=== PATIENT | female | born 1965 | race Caucasian/White ===

== ENCOUNTER → 2017-11-01 | Outpatient (CLI) | payer OTHER ==
[~2017-11-01] MED LIST: ALBU90OI INH; ALL DAY ALLERGY10 M1 PO; AMOX500 PO; Advil200 M1 PO; Augmentin 875-1 EACH PO; BONINE25 MG; Bactrim Ds Tab1 EACH PO; CEPH500; CEPH500 PO; CIPR500 PO; CLON.5; CLON.5 PO; CODBUTACEC PO; CYCL10; CYCL10 PO; Cleocin HCl150 MG PO; Cleocin HCl300 MG PO; DIAZ5 PO; DICY20 PO; Estradiol1 MG PO; FERR325; FURO20; GABA100; GEMF600; HYDACE5; HYDACE5 PO; HYDMOR2 PO; HYDPAM50 PO; IBUP600; IBUP600 PO; IBUP800; IBUP800 PO; Keflex500 MG PO; LAMO100; LAMO100 PO; LEVSOD100; LISI10; LITH300ER; LITH450ER; MEDR10 PO; MONT10T; NAPR500; NAPR500 PO; OLAN10; OLAN5 PO; OLAN7.5 PO; OXYACE5T; OXYACE5T PO; OXYACE7.5T; PROACE50 PO; PROAIR HFA; PROM25; PROM25 PO; QUET100; QUET300; QVAR7.3 G1 IH; QVAR7.3 G1 INH; RANI150; RANI150 PO; RXCEPH500 PO; RXHYDACE PO; RXLORA1 PO; RXOXYACE PO; RXSULTRIDS PO; RXTRAM50 PO; SPIR50; SULTRIDS PO; SYMBYAX; TRAM50 PO; VENL75ER; Zofran Odt4 MG SL; [UNRECOGNIZED DRUG - REMARK]
== END | disposition home or self-care (01) ==
LOC: LAB 15:10
DX: N39.0 Urinary tract infection, site not specified (principal)
CPT/HCPCS: 87086

== ENCOUNTER 2018-08-29 07:17 | Day surgery (SDC) | payer OTHER ==
[~2018-08-29] VITALS: Ht 175.3 cm; Wt 138.5 kg
[~2018-08-29 07:17] MED LIST changes: +FURO20 PO; +GLYDO11 ML MM; +HEARTBURN RELI150 M1 PO; +MONT10T PO; +MOTION RELIEF25 MG PO; +OLANZAPINE-FLU1 EACH PO; +ONDA4 PO; +QVAR REDIHALE10.6 G1 INH
--- NOTE | 2018-08-29 07:46 | NUR ---
08/29/18 0746 Carola Colon FIRST IV START IN RIGHT HAND HURT TO BAD. WE REMOVED IT AND SITE LOOKS GOOD.
[2018-08-29] MEDS ORDERED: METF500C PO (07:48)
== END 2018-08-29 09:17 | disposition home or self-care (01) ==
LOC: ORSCSDS 07:17
PROVIDERS: Internal Medicine Gastroenterology
PROC: 0DB68ZX Excision of Stomach, Via Natural or Artificial Opening Endoscopic, Diagnostic (ICD-10-PCS; principal; 2018-08-29 08:30)
DX: K21.0 Gastro-esophageal reflux disease with esophagitis (principal); K44.9 Diaphragmatic hernia without obstruction or gangrene; G47.33 Obstructive sleep apnea (adult) (pediatric); K31.89 Other diseases of stomach and duodenum; F31.9 Bipolar disorder, unspecified; I10 Essential (primary) hypertension; J45.909 Unspecified asthma, uncomplicated; E66.01 Morbid (severe) obesity due to excess calories; Z68.42 Body mass index [BMI] 45.0-49.9, adult; Z79.899 Other long term (current) drug therapy
CPT/HCPCS: 82947; 88305; 88342; J0330; J1980; J2250; J2405; J7120

== ENCOUNTER 2018-09-12 15:57 | Emergency (ER) | payer OTHER ==
[~2018-09-12] VITALS: Ht 175.3 cm; Wt 138.3 kg
[~2018-09-12 15:57] MED LIST changes: +METF500C PO
[2018-09-12] MEDS ORDERED: Omeprazole20 M1 PO (17:56)
[2018-09-12] MEDS ORDERED: KETO10 PO (18:18)
[2018-09-12] MEDS ORDERED: CYCL10 PO (18:18)
== END 2018-09-12 19:43 | disposition home or self-care (01) ==
LOC: ER 15:57
DX: M54.5 Low back pain (principal); G89.29 Other chronic pain; F41.9 Anxiety disorder, unspecified; F31.9 Bipolar disorder, unspecified; Z88.1 Allergy status to other antibiotic agents; Z88.8 Allergy status to other drugs, medicaments and biological substances; Z79.84 Long term (current) use of oral hypoglycemic drugs; Z79.899 Other long term (current) drug therapy; Z87.440 Personal history of urinary (tract) infections; Z87.891 Personal history of nicotine dependence
CPT/HCPCS: 72100; 96372; 99283-25; J1885

== ENCOUNTER → 2018-12-30 | Outpatient (CLI) | payer OTHER ==
[~2018-12-30] MED LIST changes: +KETO10 PO; +Omeprazole20 M1 PO
[2018-12-30 10:30] LABS: Calcium, Urine 13.7 mg/dL (< 17.5); Calcium, Urine Calculation 232.9 mg/24hrs (42.0-353.0)
== END | disposition home or self-care (01) ==
LOC: LAB 09:41 → LAB SHORT 09:41 → LAB FUT 09-08 15:15
PROVIDERS: Internal Medicine Endocrinology, Diabetes & Metabolism
DX: E21.0 Primary hyperparathyroidism (principal)
CPT/HCPCS: 81050; 82340; 82570

== ENCOUNTER 2019-08-19 16:42 | Emergency (ER) | payer OTHER ==
[~2019-08-19] VITALS: Ht 175.3 cm; Wt 136.1 kg
[2019-08-19] MEDS ORDERED: Robaxin-750750 MG PO (18:59)
[2019-08-19] MEDS ORDERED: Voltaren100 GM TOP (18:59)
== END 2019-08-19 19:08 | disposition home or self-care (01) ==
LOC: ER 16:42
DX: G89.29 Other chronic pain (principal); M54.5 Low back pain; F41.9 Anxiety disorder, unspecified; F31.9 Bipolar disorder, unspecified; Z87.440 Personal history of urinary (tract) infections; Z88.1 Allergy status to other antibiotic agents; Z88.8 Allergy status to other drugs, medicaments and biological substances; Z79.899 Other long term (current) drug therapy; Z87.891 Personal history of nicotine dependence; Z85.528 Personal history of other malignant neoplasm of kidney
CPT/HCPCS: 96372; 99283-25; J1885

== ENCOUNTER → 2019-09-25 | Outpatient (CLI) | payer OTHER ==
[~2019-09-25] MED LIST changes: +Robaxin-750750 MG PO; +Voltaren100 GM TOP
[2019-09-25 14:53] LABS: Alanine Aminotransfer (ALT/SGP 31 U/L (12-78); Albumin, Blood 3.6 g/dL (3.4-5.0); Albumin/Globulin Ratio 0.8 (0.8-1.8); Alk Phos 143 U/L (40-126); Anion Gap 10 mmol/L (6-16); Aspartate Aminotrans (AST/SGOT 24 U/L (12-37); Bilirubin, Total 0.3 mg/dL (0.1-1.0); Blood Urea Nitrogen 7 mg/dL (8-24); Bun/Creatinine Ratio 8.8 (12.0-20.0); CO2, Blood 26 mmol/L (21-32); Calcium, Blood 10.3 mg/dL (8.5-10.1); Chloride, Blood 104 mmol/L (98-108); Globulin, Blood 4.4 g/dL (2.2-4.0); Glomerular Filtration Rate >60 (60-); Glucose, Blood 134 mg/dL (70-99); Potassium, Blood 4.1 mmol/L (3.5-5.5); Sodium, Blood 140 mmol/L (136-145)
== END ==
LOC: LAB SHORT 14:31 → LAB EV 14:31
PROVIDERS: Emergency Medicine
DX: M54.5 Low back pain (principal)
CPT/HCPCS: 80053

== ENCOUNTER 2020-05-14 21:53 | Emergency (ER) | payer OTHER ==
[~2020-05-14] VITALS: Ht 175.3 cm; Wt 141.5 kg
[2020-05-14] MEDS ORDERED: ATOR20 (22:05)
[2020-05-14] MEDS ORDERED: SITA50T2 PO (22:05)
[2020-05-14] MEDS ORDERED: CYCL10 PO (22:05)
[2020-05-14] MEDS ORDERED: POTA8 (22:06)
[2020-05-14] MEDS ORDERED: FUROSEMIDE20 MG PO (22:06)
[2020-05-14] MEDS ORDERED: ESTRADIOL 1MG (22:07)
== END 2020-05-14 23:19 | disposition home or self-care (01) ==
LOC: ER 21:53
DX: M25.562 Pain in left knee (principal); F41.9 Anxiety disorder, unspecified; F31.9 Bipolar disorder, unspecified; Z87.891 Personal history of nicotine dependence; Z79.84 Long term (current) use of oral hypoglycemic drugs; Z88.1 Allergy status to other antibiotic agents; Z88.8 Allergy status to other drugs, medicaments and biological substances; Z79.899 Other long term (current) drug therapy
CPT/HCPCS: 96372; 99283-25; J1885

== ENCOUNTER 2020-05-19 16:43 | Emergency (ER) | payer OTHER ==
[~2020-05-19] VITALS: Ht 175.3 cm; Wt 145.2 kg
[~2020-05-19 16:43] MED LIST changes: +ATOR20; +ESTRADIOL 1MG; +FUROSEMIDE20 MG PO; +POTA8; +SITA50T2 PO
[2020-05-19] MEDS ORDERED: ESTRADIOL1 M1 PO (16:56)
[2020-05-19] MEDS ORDERED: OLANZAPINE-FLU1 EAC8 PO (16:56)
[2020-05-19] MEDS ORDERED: CYCL10 PO (16:58)
[2020-05-19] MEDS ORDERED: ATOR40TA PO (16:59)
[2020-05-19] MEDS ORDERED: HYDR1TAB94 PO (18:34)
[2020-05-19] MEDS ORDERED: Colace250 MG PO (18:34)
== END 2020-05-19 19:18 | disposition home or self-care (01) ==
LOC: ER 16:43
DX: S83.92XA Sprain of unspecified site of left knee, initial encounter (principal); F41.9 Anxiety disorder, unspecified; F31.9 Bipolar disorder, unspecified; Z88.1 Allergy status to other antibiotic agents; Z79.84 Long term (current) use of oral hypoglycemic drugs; Z79.899 Other long term (current) drug therapy; Z88.8 Allergy status to other drugs, medicaments and biological substances; Z87.891 Personal history of nicotine dependence; X50.0XXA Overexertion from strenuous movement or load, initial encounter
CPT/HCPCS: 29505; 73564; 99283-25; A9270-GY

== ENCOUNTER → 2021-03-15 | Outpatient (CLI) | payer OTHER ==
[~2021-03-15] MED LIST changes: +ATOR40TA PO; +Colace250 MG PO; +ESTRADIOL1 M1 PO; +HYDR1TAB94 PO; +OLANZAPINE-FLU1 EAC8 PO
== END | disposition home or self-care (01) ==
LOC: LAB SHORT 11:00
DX: N30.00 Acute cystitis without hematuria (principal)
CPT/HCPCS: 87077; 87086; 87186

== ENCOUNTER 2021-04-02 19:03 | Emergency (ER) | payer OTHER ==
[~2021-04-02] VITALS: Ht 177.8 cm; Wt 133.8 kg
[2021-04-02 20:11] LABS: Source, Urine Clean Catch
[2021-04-02 20:15] LABS: Bilirubin, Urine Neg (Neg); Blood, Urine 5+ (Neg); Glucose Qualitative, Urine Neg (Neg); Ketones, Urine 1+ (Neg); Leukocyte Esterase, Urine 3+ (Neg); Nitrite, Urine Neg (Neg); Protein, Urine 4+ (Neg); Specific Gravity, Urine 1.025 (1.003-1.022); Urobilinogen, Urine 1+ (Normal)
[2021-04-02 20:17] LABS: Appearance, Urine Cloudy (Clear); Color, Urine Yellow (P-Yellow)
[2021-04-02] MEDS ORDERED: SULTRIDS PO (20:23)
[2021-04-02 20:25] LABS: Bacteria Mod /hpf; Red Blood Cells, Urine 25-50 /hpf (0-2); Squamous Epithelial Cells Few /hpf (Few); White Blood Cells, Urine TNTC /hpf (0-5)
== END 2021-04-02 20:40 | disposition home or self-care (01) ==
LOC: ER 19:03
PROVIDERS: Physician Assistant
DX: N39.0 Urinary tract infection, site not specified (principal); B96.89 Other specified bacterial agents as the cause of diseases classified elsewhere; Z88.1 Allergy status to other antibiotic agents; Z88.5 Allergy status to narcotic agent; Z79.899 Other long term (current) drug therapy; Z87.891 Personal history of nicotine dependence
CPT/HCPCS: 81001; 87086; 99283; A9270

== ENCOUNTER 2021-09-23 08:25 | Day surgery (SDC) | payer OTHER ==
[~2021-09-23] VITALS: Ht 175.3 cm; Wt 144.7 kg
--- NOTE | 2021-09-23 10:20 | NUR ---
09/23/21 1020 Leonor Chahal ORISE GEL WAS INJECTED AT TOTAL OF 7CC INTO TRANSVERSE POLYP
== END 2021-09-23 11:12 | disposition home or self-care (01) ==
LOC: ORSCSDS 08:25
PROVIDERS: Internal Medicine Gastroenterology
PROC: 0DBN8ZX Excision of Sigmoid Colon, Via Natural or Artificial Opening Endoscopic, Diagnostic (ICD-10-PCS; principal; 2021-09-23 10:00)
PROC: 0DBL8ZX Excision of Transverse Colon, Via Natural or Artificial Opening Endoscopic, Diagnostic (ICD-10-PCS; principal; 2021-09-23 10:00)
DX: Z12.11 Encounter for screening for malignant neoplasm of colon (principal); Z86.010 Personal history of colon polyps; D12.3 Benign neoplasm of transverse colon; D12.5 Benign neoplasm of sigmoid colon; K57.30 Diverticulosis of large intestine without perforation or abscess without bleeding; K64.8 Other hemorrhoids; I10 Essential (primary) hypertension; E78.5 Hyperlipidemia, unspecified; J44.9 Chronic obstructive pulmonary disease, unspecified; E11.9 Type 2 diabetes mellitus without complications; G47.33 Obstructive sleep apnea (adult) (pediatric); Z79.899 Other long term (current) drug therapy; F31.9 Bipolar disorder, unspecified; E66.01 Morbid (severe) obesity due to excess calories; Z68.42 Body mass index [BMI] 45.0-49.9, adult; Z79.84 Long term (current) use of oral hypoglycemic drugs
CPT/HCPCS: 82947; 88305; J2704; J7120

== ENCOUNTER → 2022-03-16 | Outpatient (CLI) | payer OTHER ==
[~2022-03-16] MED LIST changes: +OLANZAPINE FLU PO; -OLANZAPINE-FLU1 EAC8 PO; +VITAMIN D5000 UNIT PO
[2022-03-20 03:08] LABS: HSV-1 DNA Negative (Negative); HSV-2 DNA Negative (Negative)
== END | disposition home or self-care (01) ==
LOC: LAB SHORT 14:00 → LAB 14:00
PROVIDERS: Nurse Practitioner
DX: R21 Rash and other nonspecific skin eruption (principal)
CPT/HCPCS: 87070; 87529

== ENCOUNTER 2022-04-03 11:57 | Day surgery (SDC) | payer OTHER ==
[~2022-04-03] VITALS: Ht 175.3 cm; Wt 140.2 kg
== END 2022-04-03 15:05 | disposition home or self-care (01) ==
LOC: ORSCSDS 11:57
PROVIDERS: Internal Medicine Gastroenterology
PROC: 0DBK8ZX Excision of Ascending Colon, Via Natural or Artificial Opening Endoscopic, Diagnostic (ICD-10-PCS; principal; 2022-04-03 13:15)
PROC: 0DBL8ZX Excision of Transverse Colon, Via Natural or Artificial Opening Endoscopic, Diagnostic (ICD-10-PCS; principal; 2022-04-03 13:15)
PROC: 0DBN8ZX Excision of Sigmoid Colon, Via Natural or Artificial Opening Endoscopic, Diagnostic (ICD-10-PCS; principal; 2022-04-03 13:15)
DX: Z86.010 Personal history of colon polyps (principal); D12.5 Benign neoplasm of sigmoid colon; D12.2 Benign neoplasm of ascending colon; D12.3 Benign neoplasm of transverse colon; K57.30 Diverticulosis of large intestine without perforation or abscess without bleeding; K64.8 Other hemorrhoids; I10 Essential (primary) hypertension; G47.33 Obstructive sleep apnea (adult) (pediatric); J45.909 Unspecified asthma, uncomplicated; F31.9 Bipolar disorder, unspecified; Z79.899 Other long term (current) drug therapy; Z79.84 Long term (current) use of oral hypoglycemic drugs; Z87.891 Personal history of nicotine dependence
CPT/HCPCS: 82947; 88305; J2704; J7120

== ENCOUNTER → 2022-06-02 | Outpatient (CLI) | payer OTHER | END | disposition home or self-care (01) | LOC: LAB 12:00 → LAB SHORT 12:00 | DX: R35.0 Frequency of micturition (principal) | CPT/HCPCS: 87077; 87086; 87186 ==

== ENCOUNTER 2022-08-20 06:12 | Day surgery (SDC) | payer OTHER ==
[~2022-08-20] VITALS: Ht 175.3 cm; Wt 142.3 kg
[2022-08-20] MEDS ORDERED: ESTRADIOL1 MG PO (06:29)
[2022-08-20] MEDS ORDERED: ALBU90OI INH (06:41)
--- NOTE | 2022-08-20 06:43 | NUR ---
08/20/22 0643 Veronique Cruz IN AT 0611 JESSE IN AT 0676
== END 2022-08-20 08:10 | disposition home or self-care (01) ==
LOC: ORSCSDS 06:12
PROVIDERS: Ophthalmology
PROC: 08RJ3JZ Replacement of Right Lens with Synthetic Substitute, Percutaneous Approach (ICD-10-PCS; principal; 2022-08-20 07:30)
DX: H25.12 Age-related nuclear cataract, left eye (principal); Z87.891 Personal history of nicotine dependence; I10 Essential (primary) hypertension; G47.33 Obstructive sleep apnea (adult) (pediatric); J45.909 Unspecified asthma, uncomplicated; E11.9 Type 2 diabetes mellitus without complications; E66.01 Morbid (severe) obesity due to excess calories; Z68.42 Body mass index [BMI] 45.0-49.9, adult; F31.9 Bipolar disorder, unspecified; Z79.84 Long term (current) use of oral hypoglycemic drugs; Z79.899 Other long term (current) drug therapy
CPT/HCPCS: 82947; J2001; J2250; J3010; J3301; J7040; V2632

== ENCOUNTER 2022-08-25 13:07 | Day surgery (SDC) | payer OTHER ==
[~2022-08-25] VITALS: Ht 175.3 cm; Wt 141.9 kg
[~2022-08-25 13:07] MED LIST changes: +ESTRADIOL1 MG PO
== END 2022-08-25 15:18 | disposition home or self-care (01) ==
LOC: ORSCSDS 13:07
PROVIDERS: Ophthalmology
PROC: 08RJ3JZ Replacement of Right Lens with Synthetic Substitute, Percutaneous Approach (ICD-10-PCS; principal; 2022-08-25 14:30)
DX: H25.11 Age-related nuclear cataract, right eye (principal); Z96.1 Presence of intraocular lens; I10 Essential (primary) hypertension; F31.9 Bipolar disorder, unspecified; E11.9 Type 2 diabetes mellitus without complications; E21.3 Hyperparathyroidism, unspecified; Z79.84 Long term (current) use of oral hypoglycemic drugs; Z79.899 Other long term (current) drug therapy; Z87.891 Personal history of nicotine dependence; E66.01 Morbid (severe) obesity due to excess calories; Z68.42 Body mass index [BMI] 45.0-49.9, adult
CPT/HCPCS: 82947; J2001; J2250; J3010; J3301; J7040; V2632

== ENCOUNTER → 2022-11-16 | Outpatient (CLI) | payer OTHER ==
[2022-11-16 15:21] LABS: Creatinine Urine 74.1 mg/dL (27.00-270.00); Microalbumin, Urine Quant. 12.7 mg/L (0.000-20.000); Protein, Urine Quantitative 9.4 mg/dL (0.0-11.9)
== END | disposition home or self-care (01) ==
LOC: LAB 09:00 → LAB SHORT 09:00
PROVIDERS: Internal Medicine Nephrology
DX: N18.30 Chronic kidney disease, stage 3 unspecified (principal); D63.1 Anemia in chronic kidney disease; N25.81 Secondary hyperparathyroidism of renal origin; E55.9 Vitamin D deficiency, unspecified; E23.1 Drug-induced hypopituitarism; R76.9 Abnormal immunological finding in serum, unspecified; R94.5 Abnormal results of liver function studies; R94.6 Abnormal results of thyroid function studies
CPT/HCPCS: 81050; 82043; 82570; 84156

== ENCOUNTER → 2022-11-27 | Outpatient (CLI) | payer OTHER ==
[2022-11-27 11:57] LABS: Albumin, Blood 3.7 g/dL (3.4-5.0); Anion Gap 4 mmol/L (6-16); Blood Urea Nitrogen 10 mg/dL (8-24); Bun/Creatinine Ratio 15.2 (12.0-20.0); CO2, Blood 26 mmol/L (21-32); Calcium, Blood 10.7 mg/dL (8.5-10.1); Chloride, Blood 107 mmol/L (98-108); Creatinine, Blood 0.66 mg/dL (0.40-1.00); Glomerular Filtration Rate 102 (60-); Glucose, Blood 213 mg/dL (70-99); Phosphorus, Blood 2.8 mg/dL (2.5-4.9); Potassium, Blood 4.1 mmol/L (3.5-5.5); Sodium, Blood 137 mmol/L (136-145)
== END | disposition home or self-care (01) ==
LOC: LAB 10:10 → LAB SHORT 10:10
PROVIDERS: Internal Medicine Endocrinology, Diabetes & Metabolism
DX: E21.0 Primary hyperparathyroidism (principal); E55.9 Vitamin D deficiency, unspecified; E11.65 Type 2 diabetes mellitus with hyperglycemia
CPT/HCPCS: 36415; 80069; 82306; 83036; 83970

== ENCOUNTER → 2023-06-14 | Outpatient (CLI) | payer OTHER ==
[2023-06-14 15:03] LABS: BASOPHILS ABSOLUTE AUTO 0.06 K/mm3 (0.00-0.23); BASOPHILS PERCENT AUTO 1 % (0-2); EOSINOPHILS ABSOLUTE AUTO 0.25 K/mm3 (0.00-0.68); EOSINOPHILS PERCENT AUTO 2 % (0-6); Hematocrit 41.6 % (33.0-51.0); Hemoglobin 13.3 g/dL (11.5-16.0); IMMATURE GRAN ABSOLUTE AUTO 0.09 K/mm3 (0.00-0.10); IMMATURE GRAN PERCENT AUTO 1 % (0-1); LYMPHOCYTES ABSOLUTE AUTO 3.16 K/mm3 (0.84-5.20); LYMPHOCYTES PERCENT AUTO 27 % (21-46); MONOCYTES ABSOLUTE AUTO 0.81 K/mm3 (0.16-1.47); MONOCYTES PERCENT AUTO 7 % (4-13); Mean Corpuscular HGB 27.5 pg (26.0-34.0); Mean Corpuscular Volume 86 fL (80-100); Mean Platelet Volume 10.1 fL (9.1-12.4); NEUTROPHILS PERCENT AUTO 63 % (41-73); Platelet Count 351 K/mm3 (150-400); RDW Coefficient Variation 14.1 % (11.7-14.2); RDW Standard Deviation 44.5 fL (35.1-46.3); Red Blood Cell Count 4.83 M/mm3 (3.80-5.20); White Blood Cell Count 11.67 K/mm3 (4.00-11.30)
[2023-06-14 15:16] LABS: Creatinine, Blood 0.75 mg/dL (0.40-1.00); Magnesium, Blood 2.4 mg/dL (1.6-2.4); Potassium, Blood 4.3 mmol/L (3.5-5.5)
== END | disposition home or self-care (01) ==
LOC: LAB SHORT 13:53 → LAB 13:53
PROVIDERS: Family Medicine
DX: R55 Syncope and collapse (principal); Z79.899 Other long term (current) drug therapy
CPT/HCPCS: 80048; 83735; 85025

== ENCOUNTER 2023-09-16 14:40 | Emergency (ER) | payer OTHER ==
[~2023-09-16] VITALS: Ht 175.3 cm; Wt 129.3 kg
[2023-09-16 15:18] VITALS: BP 135/89
[2023-09-16] MEDS ORDERED: Robaxin750 MG PO (17:34)
[2023-09-16] MEDS ORDERED: ASPERFLEX1 EACH TOP (18:04)
== END 2023-09-16 18:15 | disposition home or self-care (01) ==
LOC: ER 14:40
DX: M54.50 Low back pain, unspecified (principal); M25.551 Pain in right hip; Z87.891 Personal history of nicotine dependence; E11.9 Type 2 diabetes mellitus without complications; K21.9 Gastro-esophageal reflux disease without esophagitis; F31.9 Bipolar disorder, unspecified; Z79.84 Long term (current) use of oral hypoglycemic drugs; Z79.899 Other long term (current) drug therapy; Z88.1 Allergy status to other antibiotic agents; Z88.5 Allergy status to narcotic agent; W01.0XXA Fall on same level from slipping, tripping and stumbling without subsequent striking against object, initial encounter; S79.912A Unspecified injury of left hip, initial encounter; S79.911A Unspecified injury of right hip, initial encounter; S39.92XA Unspecified injury of lower back, initial encounter; S29.9XXA Unspecified injury of thorax, initial encounter; Z98.1 Arthrodesis status; M41.86 Other forms of scoliosis, lumbar region; M46.06 Spinal enthesopathy, lumbar region; W19.XXXA Unspecified fall, initial encounter
CPT/HCPCS: 72070; 72100; 73523; 96372; 99283-25; A9270; J1885

== ENCOUNTER → 2023-09-22 | Outpatient (CLI) | payer OTHER ==
[~2023-09-22] MED LIST changes: +ASPERFLEX1 EACH TOP; +Robaxin750 MG PO
== END ==
LOC: LAB SHORT 14:13 → LAB 14:13
DX: N39.0 Urinary tract infection, site not specified (principal)
CPT/HCPCS: 87086

== ENCOUNTER 2023-09-24 20:03 | Emergency (ER) | payer OTHER ==
[~2023-09-24] VITALS: Ht 175.3 cm; Wt 127.9 kg
[2023-09-24 20:12] VITALS: BP 152/87
[2023-09-24] MEDS ORDERED: Magnesium Citrate 300 ML BTL PO ONE (21:05)
[2023-09-24] MEDS ORDERED: Glycerin Adult Supp 1 EA PR ONE (21:05)
[2023-09-24] MEDS ORDERED: RX Prepack 2 Tabs Ondansetron ODT 4MG UD ONE (21:45)
[2023-09-24] MEDS ORDERED: Peg/Electrolytes 4,000 ML BTL PO ONE (21:45)
== END 2023-09-24 22:09 | disposition home or self-care (01) ==
LOC: ER 20:03
DX: K59.00 Constipation, unspecified (principal); Z88.1 Allergy status to other antibiotic agents; Z88.8 Allergy status to other drugs, medicaments and biological substances; Z79.899 Other long term (current) drug therapy; Z79.84 Long term (current) use of oral hypoglycemic drugs; E11.9 Type 2 diabetes mellitus without complications; K21.9 Gastro-esophageal reflux disease without esophagitis; Z87.891 Personal history of nicotine dependence
CPT/HCPCS: 99283; A9270

== ENCOUNTER 2023-09-30 22:24 | Emergency (ER) | payer OTHER ==
[~2023-09-30] VITALS: Ht 175.3 cm; Wt 126.1 kg
[2023-09-30 22:57] VITALS: BP 129/57
[2023-10-01] MEDS ORDERED: TIZA4 PO (00:09)
[2023-10-01] MEDS ORDERED: Ketorolac Tromethamine 30mg Vial IM ONE (00:10)
== END 2023-10-01 00:33 | disposition home or self-care (01) ==
LOC: ER 22:24
DX: M54.50 Low back pain, unspecified (principal); G89.29 Other chronic pain; Z87.891 Personal history of nicotine dependence; Z88.8 Allergy status to other drugs, medicaments and biological substances; Z88.1 Allergy status to other antibiotic agents; Z79.899 Other long term (current) drug therapy; Z79.84 Long term (current) use of oral hypoglycemic drugs
CPT/HCPCS: 96372; 99283-25; J1885

== ENCOUNTER 2025-01-26 17:18 | Observation (INO) | payer OTHER ==
[~2025-01-26] VITALS: Ht 175.3 cm; Wt 117.9 kg
[~2025-01-26 17:18] MED LIST changes: +Enoxaparin 40 MG/0.4 ML SYR SC SCH; +TIZA4 PO
[2025-01-26 18:09] LABS: BASOPHILS ABSOLUTE AUTO 0.07 K/mm3 (0.00-0.23); BASOPHILS PERCENT AUTO 1 % (0-2); EOSINOPHILS ABSOLUTE AUTO 0.23 K/mm3 (0.00-0.68); EOSINOPHILS PERCENT AUTO 2 % (0-6); IMMATURE GRAN ABSOLUTE AUTO 0.07 K/mm3 (0.00-0.10); IMMATURE GRAN PERCENT AUTO 1 % (0-1); LYMPHOCYTES PERCENT AUTO 31 % (21-46); MONOCYTES ABSOLUTE AUTO 0.92 K/mm3 (0.16-1.47); MONOCYTES PERCENT AUTO 8 % (4-13); Mean Corpuscular HGB 26.9 pg (26.0-34.0); Mean Corpuscular HGB Conc 33.3 g/dL (31.5-36.5); Mean Corpuscular Volume 81 fL (80-100); Mean Platelet Volume 8.4 fL (9.1-12.4); NEUTROPHILS ABSOLUTE AUTO 6.64 K/mm3 (1.96-9.15); NEUTROPHILS PERCENT AUTO 58 % (41-73); Platelet Count 328 K/mm3 (150-400); RDW Coefficient Variation 13.7 % (11.7-14.2); RDW Standard Deviation 40.3 fL (35.1-46.3); White Blood Cell Count 11.53 K/mm3 (4.00-11.30)
[2025-01-26 18:31] LABS: Albumin, Blood 3.6 g/dL (3.4-5.0); Albumin/Globulin Ratio 0.8 (0.8-1.8); Bilirubin, Total 0.3 mg/dL (0.1-1.0); Bun/Creatinine Ratio 13.6 (12.0-20.0); Calcium, Blood 10.7 mg/dL (8.5-10.1); Creatinine, Blood 0.81 mg/dL (0.40-1.00); Globulin, Blood 4.7 g/dL (2.2-4.0); Potassium, Blood 4.2 mmol/L (3.5-5.5); Total Protein, Blood 8.3 g/dL (6.4-8.2)
[2025-01-26 18:49] LABS: Source, Urine Clean Catch
[2025-01-26 19:08] LABS: Bilirubin, Urine Neg (Neg); Blood, Urine 1+ (Neg); Color, Urine Yellow (P-Yellow); Glucose Qualitative, Urine Neg (Neg); Ketones, Urine Neg (Neg); Leukocyte Esterase, Urine Neg (Neg); Nitrite, Urine Neg (Neg); Protein, Urine 1+ (Neg); Urobilinogen, Urine NORM (Normal)
[2025-01-26 19:44] LABS: Appearance, Urine Hazy (Clear); Hyaline Casts 0-2 /lpf (0-2)
[2025-01-26 19:45] LABS: Amorphous Light (0-Heavy); Bacteria Many /hpf; Mucus Light (0-Heavy); Red Blood Cells, Urine 0-2 /hpf (0-2); Squamous Epithelial Cells Few /hpf (Few); White Blood Cells, Urine 0-2 /hpf (0-5)
[2025-01-26] MEDS ORDERED: OZEMPIC1 MG/0.72 SC (20:43)
[2025-01-26] MEDS ORDERED: CONSTULOSE10 GM/155 (20:44)
[2025-01-26] MEDS ORDERED: DOCUZEN 8.6-501 EACH PO (20:44)
[2025-01-26] MEDS ORDERED: Ondansetron HCl 2 MG / ML 2ML Vial IV ONE (21:30)
[2025-01-26] MEDS ORDERED: Ondansetron HCl 2 MG / ML 2ML Vial IV PRN (23:30)
[2025-01-26] MEDS ORDERED: NS 1,000 ML IV ONE (23:30)
[2025-01-26] MEDS ORDERED: HydrALAZINE HCl 20 MG / ML 1ML Vial IV PRN (23:30)
[2025-01-26] MEDS ORDERED: Enoxaparin 40 MG/0.4 ML SYR SC SCH (23:40)
[2025-01-26 23:58] LABS: Magnesium, Blood 2.4 mg/dL (1.6-2.4)
[2025-01-27] MEDS ORDERED: Aspirin 81 MG Chew PO SCH
[2025-01-27] MEDS ORDERED: Clopidogrel Bisulfate 75 MG Tab PO SCH
[2025-01-27 00:26] LABS: U Amphetamine Screen Not Detected; U Barbituate Screen Not Detected; U Benzodiazapine Screen Not Detected; U Buprenorphine Screen Not Detected; U Cannabinoids Screen Not Detected; U Cocaine Screen Not Detected; U Methadone Screen Not Detected; U Methamphetamine Screen DETECTED; U Opiates Screen Not Detected; U Oxycodone Screen Not Detected; U Phencyclidine Screen Not Detected
[2025-01-27 01:04] VITALS: BP 141/87
--- NOTE | 2025-01-27 02:09 | NUR ---
PATIENT IS A NEW ADMIT FROM THE ED. ALERT ORIENTED AND SBA TRANSFER FROM [facility] TO BED WITH NO NEURO DEFICITS OBSERVED AND ASSESSED BY BREAK RN TAMICA. SPEAKING CLEARLY IN COMPLETE SENTENCES. DENIES CHEST PAIN, SOB, AND N/V. VSS/AFEBRILE. NS STARTED @ 75mL/HR X ONE BAG. ORIENTED TO ROOM AND CALL LIGHT SYSTEM. FAN BROUGHT IN PER PATIENT REQUEST. RESTING AFTER ASSESSMENT. WCTM.
[2025-01-27 04:41] VITALS: BP 121/80
[2025-01-27 05:04] LABS: BASOPHILS ABSOLUTE AUTO 0.08 K/mm3 (0.00-0.23); BASOPHILS PERCENT AUTO 1 % (0-2); EOSINOPHILS ABSOLUTE AUTO 0.31 K/mm3 (0.00-0.68); EOSINOPHILS PERCENT AUTO 2 % (0-6); Hematocrit 40.9 % (33.0-51.0); Hemoglobin 13.4 g/dL (11.5-16.0); IMMATURE GRAN ABSOLUTE AUTO 0.06 K/mm3 (0.00-0.10); IMMATURE GRAN PERCENT AUTO 1 % (0-1); LYMPHOCYTES ABSOLUTE AUTO 4.18 K/mm3 (0.84-5.20); LYMPHOCYTES PERCENT AUTO 33 % (21-46); MONOCYTES ABSOLUTE AUTO 0.94 K/mm3 (0.16-1.47); MONOCYTES PERCENT AUTO 7 % (4-13); Mean Corpuscular HGB 26.6 pg (26.0-34.0); Mean Corpuscular HGB Conc 32.8 g/dL (31.5-36.5); Mean Corpuscular Volume 81 fL (80-100); Mean Platelet Volume 8.6 fL (9.1-12.4); NEUTROPHILS ABSOLUTE AUTO 7.12 K/mm3 (1.96-9.15); NEUTROPHILS PERCENT AUTO 56 % (41-73); Platelet Count 304 K/mm3 (150-400); RDW Coefficient Variation 13.8 % (11.7-14.2); RDW Standard Deviation 40.3 fL (35.1-46.3); Red Blood Cell Count 5.03 M/mm3 (3.80-5.20); White Blood Cell Count 12.69 K/mm3 (4.00-11.30)
[2025-01-27 06:07] LABS: Albumin, Blood 3.3 g/dL (3.4-5.0); Albumin/Globulin Ratio 0.8 (0.8-1.8); Bilirubin, Total 0.5 mg/dL (0.1-1.0); Calcium, Blood 10.3 mg/dL (8.5-10.1); Creatinine, Blood 0.83 mg/dL (0.40-1.00); Globulin, Blood 4.3 g/dL (2.2-4.0); Potassium, Blood 4.3 mmol/L (3.5-5.5); Total Protein, Blood 7.6 g/dL (6.4-8.2)
[2025-01-27 07:24] VITALS: BP 127/79
[2025-01-27] MEDS ORDERED: Insulin Human Lispro 100 Units/ML 3ML Syringe SC SCH (07:30)
[2025-01-27 11:50] VITALS: BP 151/88
[2025-01-27] MEDS ORDERED: ASPI81CH PO (15:02)
[2025-01-27] MEDS ORDERED: CLOP75 PO (15:03)
[2025-01-27] MEDS ORDERED: PANT20 PO (15:05)
--- NOTE | 2025-01-27 16:34 | NUR ---
DISCHARGED 1600, INSTRUCTIONS TO PATIENT AND DAUGHTER, BOTH STATED UNDERSTANDING OF FOLLOW UP NEEDS, MEDICATIONS AND TREATMENTS. BOTH DENIED HAVING FURTHER QUESTIONS
== END 2025-01-27 16:00 | disposition home or self-care (01) ==
LOC: ER 17:18 → MEDS 17:19
PROVIDERS: Physician Assistant; ADMIT Internal Medicine
DX: G45.9 Transient cerebral ischemic attack, unspecified (principal); E11.9 Type 2 diabetes mellitus without complications; K21.9 Gastro-esophageal reflux disease without esophagitis; G89.29 Other chronic pain; M54.9 Dorsalgia, unspecified; G47.30 Sleep apnea, unspecified; Z85.528 Personal history of other malignant neoplasm of kidney; Z87.891 Personal history of nicotine dependence; Z79.84 Long term (current) use of oral hypoglycemic drugs; Z79.85 Long-term (current) use of injectable non-insulin antidiabetic drugs; Z79.899 Other long term (current) drug therapy; Z88.1 Allergy status to other antibiotic agents; Z88.5 Allergy status to narcotic agent; Z90.5 Acquired absence of kidney
CPT/HCPCS: 36415; 70450; 80053; 81001; 82947; 83735; 85025; 87086; 93005; 93010; 93306; 93880; 96372; 96374; 99285-25; A9270; G0378; J1650; J2405; J7030

== ENCOUNTER → 2025-03-12 | Outpatient (CLI) | payer OTHER ==
[~2025-03-12] MED LIST changes: +ASPI81CH PO; +CLOP75 PO; +CONSTULOSE10 GM/155; +DOCUZEN 8.6-501 EACH PO; -Enoxaparin 40 MG/0.4 ML SYR SC SCH; +OZEMPIC1 MG/0.72 SC; +PANT20 PO
== END ==
LOC: LAB 18:37 → LAB SHORT 18:37
DX: N39.0 Urinary tract infection, site not specified (principal)
CPT/HCPCS: 87077; 87086; 87186